=== PATIENT | female | born 1970 | race Hispanic/Latino ===

== ENCOUNTER 2024-08-13 13:16 | Emergency (ER) | payer SELFPAY ==
[~2024-08-13] VITALS: Ht 157.5 cm; Wt 72.6 kg
[~2024-08-13 13:16] MED LIST: AZIT250T9 PO; METH4TAB3 PO
--- NOTE | 2024-08-13 13:25 | ERN ---
ED Note History of Present Illness Stated Complaint: HEADCAHE Chief Complaint: Headache Time Seen by MD: 13:17 Dictation: PATIENT IS A 54-YEAR-OLD FEMALE COMING IN TODAY WITH COMPLAINTS OF A GENERALIZED HEADACHE ONSET WAS TWO DAYS AGO. SHE STATES SHE HAS BEEN DIZZY AND HAD NOT BEEN TAKING HER BLOOD PRESSURE MEDICATIONS BECAUSE SHE RAN OUT ON THURSDAY. SHE STATES HER PRIMARY CARE DOCTORS IN [facility] WHERE SHE LIVED HOWEVER SHE DID NOT GO SEE HIM. SHE STATES SHE LOST HER BALANCE AND FELL HIT THE LEFT SIDE OF HER HEAD. NO LOC NO NAUSEA VOMITING NO SPENCER OR RACCOON SIGN. CURRENT BLOOD PRESSURE IS 153 IN TRIAGE. ALERT AND ORIENTED X4 NIH IS 0. SHE MOVES ALL EXTREMITIES 505 AND DROVE HERSELF TO THE HOSPITAL. Allergies: Coded Allergies: No Known Drug Allergies (Unverified Allergy, Unknown, 08/13/24) Home Meds Active Scripts Azithromycin (Azithromycin) 250 Mg Tablet, 1 TAB PO AD for 5 Days, #6 TAB 0 Refills 2 the first day followed by 1 for days 2-5 Prov:ELAINA MALIN 12/29/23 Methylprednisolone (Medrol) 4 Mg Tab.ds.pk, 1 TAB PO AD for 6 Days, #21 TAB 0 Refills 6 on day 1 then reduce by one tablet daily until gone Prov:ELAINA MALIN 12/29/23 Past Medical History Past Medical History: GERD, Hypertension Surgical History: None History: Not Applicable RN Note Reviewed/Agreed w/PFSH: Yes Review of System Dictation CONSTITUTIONAL: NEGATIVE EXCEPT FOR HPI HEAD/FACE: NEGATIVE EXCEPT FOR HPI EENT: NEGATIVE EXCEPT FOR HPI RESPIRATORY: NEGATIVE EXCEPT FOR HPI GASTROINTESTINAL/ABDOMINAL: NEGATIVE EXCEPT FOR HPI GENITOURINARY: NEGATIVE EXCEPT FOR HPI MUSCULOSKELETAL: NEGATIVE EXCEPT FOR HPI INTEGUMENTARY: NEGATIVE EXCEPT FOR HPI NEUROLOGICAL/PSYCH: NEGATIVE EXCEPT FOR HPI HEADACHE HEMATOLOGIC/LYMPHATIC: NEGATIVE EXCEPT FOR HPI ALL SYSTEMS NEGATIVE, EXCEPT NOTED ABOVE. 13 POINT REVIEW OF SYSTEMS ASSESSED AND ALL NEGATIVE EXCEPT FOR ABOVE. Initial Vital Sign VS Vital Signs Date Time Temp Pulse Resp B/P (MAP) Pulse Ox O2 Delivery O2 Flow Rate FiO2 08/13/24 13:18 97.9 76 18 154/88 100 Room Air* 0 21 Physical Exam Dictation VITAL SIGNS REVIEWED GENERAL APPEARANCE: ALERT, ORIENTED X 3, NO ACUTE DISTRESS, WELL DEVELOPED, NOURIS EYES: PERRL, PINK CONJUNCTIVAS, EYELID NO TRAUMA, ANTERIOR CHAMBER WITH ARCUS SENILIS. NO SPENCER OR RACCOON SIGN. EARS: PINNAS INTACT AND NO SIGNS OF TRAUMA OR ERYTHEMA EAR CANALS CLEAR AND NO DISCHARGE TM NO ERYTHEMA NOSE: NO DISCHARGE, NO BLEEDING. OROPHARYNX: MOUTH NORMAL, TONGUE PINK, PHARYNX CLEAR,NO ERYTHEMA, TONSILS NO EXUDATES, NO ABSCESSES NOTED, MUCOUS MEMBRANE MOIST NO HEMOTYMPANUM NECK: SUPPLE, NON-TENDER, NO THYROMEGALY, NO MASSES, NO JVD, NO BRUITS BREAST:DEFERRED CHEST:NO TENDERNESS, NO CREPITUS, NO PARADOXICAL MOVEMENT, NO RETRACTIONS LUNGS:CLEAR, WELL-VENTILATED, SYMMETRIC, NO RALES, NO WHEEZING, NO RHONCHI, NO STRIDOR, GOOD BREATH SOUNDS BILATERALLY HEART: REGULAR RATE, REGULAR RHYTHM, NO MURMUR, NO GALLOPS VASCULAR: NO PERIPHERAL EDEMA, ABDOMEN: SOFT, POSITIVE BOWEL SOUNDS, NONDISTENDED, NO GUARDING, NONTENDER, NO REBOUND, NO MASSES NO HEPATOMEGALY, NO SPLENOMEGALY, NO MUKHERJEE'S SIGN, NO HERNIAS. RECTAL: DEFERRED GENITAL: DEFERRED NEUROLOGICAL: NORMAL SPEECH, MOTOR FUNCTION INTACT, SENSORY FUNCTION INTACT MUSCULOSKELETAL: NECK NONTENDER, FULL RANGE OF MOTION, BACK NONTENDER, FULL RANGE OF MOTION, EXTREMITIES: NONTENDER, FULL RANGE OF MOTION SKIN: COLOR PINK, DRY, NO TURGOR, NO RASH, NO LACERATIONS, NO ABRASIONS, NO CONTUSIONS. LYMPHATIC: DEFERRED Results (Laboratory/Radiology) Laboratory/Radiology Laboratory Tests Test 08/13/24 13:32 White Blood Count 4.4 K/uL (4.8-10.8) L Red Blood Count 5.36 MIL/uL (4.00-5.50) Hemoglobin 10.0 g/dL (12.0-16.0) L Hematocrit 35.7 % (36-48) L Mean Corpuscular Volume 66.6 fL (79-99) L Mean Corpuscular Hemoglobin 18.7 pg (27.0-33.0) L Mean Corpuscular Hemoglobin Concent 28.0 g/dL (32.0-36.0) L Red Cell Distribution Width 19.8 % (11.0-15.5) H Platelet Count 260 K/uL (130-400) Mean Platelet Volume 9.7 fL (7.5-10.5) Immature Granulocyte % (Auto) 0.5 % (0-1) Neutrophils (%) (Auto) 58.0 % (40.0-77.0) Lymphocytes (%) (Auto) 28.6 % (21.0-51.0) Monocytes (%) (Auto) 9.0 % (3.0-13.0) Eosinophils (%) (Auto) 3.2 % (0.0-8.0) Basophils (%) (Auto) 0.7 % (0.0-5.0) Neutrophils # (Auto) 2.6 K/uL (1.8-7.7) Lymphocytes # (Auto) 1.3 K/uL (1.0-4.8) Monocytes # (Auto) 0.4 K/uL (0.1-1.0) Eosinophils # (Auto) 0.14 K/uL (0.00-0.70) Basophils # (Auto) 0.03 K/uL (0.00-0.20) Absolute Immature Granulocyte (auto 0.02 K/uL (0-1) Nucleated Red Blood Cells 0.0 % (0.0-0.19) Red Blood Cell Morphology See comments Sodium Level 140 mmol/L (136-145) Potassium Level 3.6 mmol/L (3.5-5.1) Chloride Level 102 mmol/L (101-111) Carbon Dioxide Level 27 mmol/L (21-32) Blood Urea Nitrogen 8 mg/dL (7-18) Creatinine 0.7 mg/dL (0.5-1.0) Glomerular Filtration Rate Calc 103 mL/min (>90) Random Glucose 155 mg/dL (70-105) H Total Calcium 8.8 mg/dL (8.5-10.1) Labs Reviewed?: Yes EKG Comment: EKG SINUS RHYTHM/HEART RATE 84/LEFT AXIS DEVIATION/NO ECTOPY NOTE THAT NO TROPONIN WAS DRAWN. ED Course ED Course Orders Procedure Category Date Status Time Acetaminophen 500mg PHA 08/13/24 Complete Tab (Tylenol 500mg T 13:30 Cbc With Differential LAB 08/13/24 Complete 13:21 12 Lead Ekg Tracing- EKG 08/13/24 Complete Technical 13:21 Basic Metabolic Panel LAB 08/13/24 Complete 13:21 Current Medications Medications (Trade) Dose Ordered Sig/Neo Route PRN Reason Start Time Stop Time Status Last Admin Dose Admin Acetaminophen (TYLenol 500MG TAB) 1,000 mg ONCE ONCE PO 08/13/24 13:30 08/13/24 13:31 DC 08/13/24 14:14 Vital Signs Date Time Temp Pulse Resp B/P (MAP) Pulse Ox O2 Delivery O2 Flow Rate FiO2 08/13/24 14:20 98.2 83 16 154/82 98 Room Air* 0 21 08/13/24 13:19 97.9 76 18 154/88 100 Room Air 0 08/13/24 13:18 97.9 76 18 154/88 100 Room Air* 0 21 1450/PATIENT REMAINS HEMODYNAMICALLY STABLE. ADDITIONALLY SHE IS NEUROLOGICALLY INTACT WITH A NIH IS 0. PATIENT WAS STRONGLY ADVISED TO FOLLOW UP WITH HER PRIMARY CARE DOCTOR FOR THURSDAY SHE HAS BENIGN HYPERTENSION AND HE WILL BE MANAGING HER Medical Decision Making MDM MEDICAL DECISION-MAKING BASED ON EKG AND BASIC LABS FOR NEAR-SYNCOPE. LABS UNREMARKABLE NO CAT SCAN INDICATED FOLLOWING THE [place] CT RULES PATIENT AWARE SHE HAS BEEN NINE HYPERTENSION WITH SYSTOLIC 150 FOR 155. SHE WAS TOLD TO FOLLOW UP WITH HER PRIMARY CARE DOCTOR ON THURSDAY OR THURSDAY FOR MANAGEMENT. DX & DISP Disposition: Discharge Departure Impression: Primary Impression: Contusion of scalp, initial encounter Additional Impressions: Benign hypertension, Vasovagal near syncope Condition: Stable Additional Instructions: FOLLOW-UP WITH PRIMARY CARE PROVIDER IN 1 TO 2 DAYS. TAKE MEDICATIONS DIREC CRISTELA HERE IN THE EMERGENCY ROOM. OKAY TO CONTINUE HOME MEDICATIONS UNLESS OTHERWISE DISCUSSED DURING YOUR VISIT IN THE EMERGENCY ROOM TODAY. RETURN TO YOUR NEAREST EMERGENCY ROOM IF SYMPTOMS WORSEN OR IF THERE IS NO IMPROVEMENT. CALL 911 IF YOU NEED IMMEDIATE ASSISTANCE. TAKE TYLENOL OR MOTRIN [id number] NEEDED AND IF NO CONTRAINDICATIONS ARE PRESENT. INCREASE ORAL HYDRATION. A WOUND CULTURE OR URINE CULTURE WAS ORDERED HERE IN THE EMERGENCY ROOM DEPARTMENT PLEASE FOLLOW-UP WITH PRIMARY CARE PROVIDER AND ADVISE THEM TO GET REPEAT PORTS FROM OUR FACILITY. IF YOU HAD ANY HOMERO WRAP/SPLINTS THAT WERE APPLIED HERE, PLEASE DO NOT REMOVE THEM UNTIL YOU SEE YOUR PRIMARY CARE OR SPECIALTY. NO WORK UNTIL CLEARED BY YOUR PRIMARY CARE DOCTOR ON THURSDAY OR THURSDAY. DIET AND ACTIVITY TOLERATED Referrals: NONE (PCP) Time of Disposition: 14:50 I have reviewed the case, and I agree with, Diagnosis and Plan REYSE FLOYD SMALL BUSINESS SALES REPRESENTATIVE Aug 13, 2024 13:25
--- NOTE | 2024-08-13 13:28 | EKG ---
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
[2024-08-13 13:41] LABS: BASOPHILS # (AUTO) 0.03 K/uL (0.00-0.20); BASOPHILS % (AUTO) 0.7 % (0.0-5.0); EOSINOPHILS # (AUTO) 0.14 K/uL (0.00-0.70); EOSINOPHILS % (AUTO) 3.2 % (0.0-8.0); HEMATOCRIT 35.7 % (36-48); IMMATURE GRANULOCYTE ABSOLUTE 0.02 K/uL (0-1); LYMPHOCYTES # (AUTO) 1.3 K/uL (1.0-4.8); LYMPHOCYTES % (AUTO) 28.6 % (21.0-51.0); MEAN CORPUSCULAR HEMOGLOBIN 18.7 pg (27.0-33.0); MEAN CORPUSCULAR VOLUME 66.6 fL (79-99); MONOCYTES # (AUTO) 0.4 K/uL (0.1-1.0); NEUTROPHILS # (AUTO) 2.6 K/uL (1.8-7.7); PLATELET COUNT (AUTO) 260 K/uL (130-400); RED BLOOD CELL COUNT(AUTO) 5.36 MIL/uL (4.00-5.50); RED CELL DISTRIBUTION WIDTH 19.8 % (11.0-15.5); WHITE BLOOD COUNT (AUTO) 4.4 K/uL (4.8-10.8)
[2024-08-13 13:49] LABS: CREATININE 0.7 mg/dL (0.5-1.0); POTASSIUM 3.6 mmol/L (3.5-5.1)
[2024-08-13] MEDS: acetaMINOPHEN 500 MG TABLET PO ONE (14:14)
[2024-08-13 14:20] VITALS: BP 154/82; PULSE 83; RESP 16; TEMP 98.3; O2SAT 98
== END 2024-08-13 15:00 | disposition home or self-care (01) ==
LOC: EDH 13:16
DX: S00.03XA Contusion of scalp, initial encounter (principal); I10 Essential (primary) hypertension; R55 Syncope and collapse; W18.39XA Other fall on same level, initial encounter; Y93.89 Activity, other specified; Y92.89 Other specified places as the place of occurrence of the external cause; Y99.8 Other external cause status
CPT/HCPCS: 36415; 80048; 85025; 93005; 99284